=== PATIENT | male | born 1955 | race Caucasian/White ===

== ENCOUNTER 2021-06-20 14:54 | Inpatient (IN) ==
[2021-06-20 16:20] LABS: Basophils % 0.1 %; Hematocrit 32.8 % (37.5-50.1); Hemoglobin 10.2 g/dL (12.9-16.9); Immature Granulocytes % 0.8 % (0-4); Lymphocytes # 0.5 K/mcL (0.6-4.6); Lymphocytes % 6.3 %; Mean Corpuscular HGB Conc 31.1 g/dL (31.6-35.5); Mean Corpuscular Hemoglobin 30.7 pg (28.0-33.3); Mean Corpuscular Volume 98.8 fL (83.0-100.0); Mean Platelet Volume 11.9 fL (9.4-12.4); Monocytes # 0.2 K/mcL (0.0-1.3); Neutrophils # 7.2 K/mcL (1.6-8.9); Platelet Count 276 K/mcL (140-400); Red Blood Count 3.32 M/mcL (4.19-5.50); Red Cell Distribution Width 13.8 % (11.5-14.5); Segmented Neutrophils % 90.8 %
[2021-06-20 16:45] LABS: Calcium 8.8 mg/dL (8.6-10.3); Troponin I 0.05 ng/mL (< 0.04)
[2021-06-20] MEDS ORDERED: Calcium Gluconate 1gm/50mL 1 GM/50 ML BAG IVPB STA ×2 (16:47→21:44)
[2021-06-20] MEDS ORDERED: Insulin Human Regular 10 UNIT in 0.9 % Sodium Chloride 10 ML IV ONE ×2 (16:49→20:57)
[2021-06-20] MEDS ORDERED: Albuterol 2.5 MG/3 ML NEBULIZER IH ONE (16:49)
[2021-06-20] MEDS ORDERED: [UNRECOGNIZED DRUG - OTHER] IV ONE ×2 (16:51→21:45)
[2021-06-20] MEDS ORDERED: Furosemide 40 MG in 0.9 % Sodium Chloride 50 ML IV ONE (16:53)
[2021-06-20] MEDS ORDERED: Furosemide 40 MG/4 ML VIAL IVP ONE (17:00)
[2021-06-20 20:52] LABS: Calcium 9.2 mg/dL (8.6-10.3); Potassium 6.6 mEq/L (3.5-5.1)
[2021-06-20] MEDS ORDERED: Calcium Gluconate 1gm/50mL 1 GM/50 ML BAG IVPB ONE (22:00)
[2021-06-20] MEDS ORDERED: Ondansetron 4 MG/2 ML VIAL IVP PRN (22:23)
[2021-06-20] MEDS ORDERED: Naloxone 0.4 MG/ML INJ IVP PRN (22:23)
[2021-06-20] MEDS ORDERED: Acetaminophen 325 MG TABLET PO PRN (22:23)
[2021-06-20] MEDS ORDERED: SODIUM ZIRCONIUM CYCLOSILICATE 5 GM POWD.PACK PO ONE (23:14)
[2021-06-21] MEDS ORDERED: Ipratropium/Albuterol Neb 3 ML IH PRN
[2021-06-21 02:21] LABS: Basophils % 0.1 %; Hematocrit 30.8 % (37.5-50.1); Hemoglobin 9.6 g/dL (12.9-16.9); Immature Granulocytes % 0.5 % (0-4); Lymphocytes # 0.5 K/mcL (0.6-4.6); Lymphocytes % 4.8 %; Mean Corpuscular HGB Conc 31.2 g/dL (31.6-35.5); Mean Corpuscular Hemoglobin 30.8 pg (28.0-33.3); Mean Corpuscular Volume 98.7 fL (83.0-100.0); Monocytes # 0.8 K/mcL (0.0-1.3); Monocytes % 7.4 %; Neutrophils # 8.8 K/mcL (1.6-8.9); Platelet Count 270 K/mcL (140-400); Red Blood Count 3.12 M/mcL (4.19-5.50); Red Cell Distribution Width 13.9 % (11.5-14.5); Segmented Neutrophils % 87.2 %; White Blood Count 10.1 K/mcL (4.3-11.1)
[2021-06-21 02:29] LABS: INR 1.1; Prothrombin Time 11.7 Seconds (9.4-12.1)
[2021-06-21 02:37] LABS: Albumin 3.8 g/dL (3.5-5.7); Albumin/Globulin Ratio 1.2 (1.1-2.2); Bilirubin,Direct 0.1 mg/dL (0.0-0.2); Bilirubin,Indirect 0.2 mg/dL (0.0-1.0); Bilirubin,Total 0.3 mg/dL (0.3-1.0); Globulin 3.3 g/dL (2.4-3.5); Total Protein 7.1 g/dL (6.4-8.9)
[2021-06-21 02:47] LABS: Calcium 9.1 mg/dL (8.6-10.3); Magnesium 2.8 mg/dL (1.6-2.6); Potassium 6.5 mEq/L (3.5-5.1)
[2021-06-21 03:11] LABS: Thyroid Stimulating Hormone 0.279 mcIU/mL (0.340-5.600)
[2021-06-21] MEDS ORDERED: Albuterol 2.5 MG/3 ML NEBULIZER IH ONE (03:18)
[2021-06-21] MEDS ORDERED: SODIUM ZIRCONIUM CYCLOSILICATE 5 GM POWD.PACK PO ONE (03:19)
[2021-06-21] MEDS ORDERED: Calcium Gluconate 1gm/50mL 1 GM/50 ML BAG IVPB ONE (03:19)
[2021-06-21] MEDS ORDERED: *HR* Dextrose 50 % in Water (Syg) 50 ML SYRINGE IVP PRN (03:25)
[2021-06-21] MEDS ORDERED: D5% in Water 1,000 ML IVC PRN (03:25)
[2021-06-21] MEDS ORDERED: Dextrose Gel 15 GM/37.5 ML TUBE PO PRN ×2 (03:25)
[2021-06-21] MEDS: Insulin LISPRO 300 UNITS/3 ML VIAL SUBQ SCH ×6 (03:58→20:26)
[2021-06-21] MEDS: *HR* Heparin 5,000 UNIT/ML VIAL SQ SCH ×3 (05:10→20:26)
[2021-06-21 07:37] LABS: Calcium 9.1 mg/dL (8.6-10.3); Potassium 5.8 mEq/L (3.5-5.1)
[2021-06-21 07:40] LABS: Bilirubin,Urine Negative (Negative); Blood,Urine Negative (Negative); Clarity,Urine Clear (Clear); Color,Urine Light-Yellow (Yellow); Glucose,Urine (UA) 300 mg/dL (Normal); Ketones,Urine Negative (Negative); Leukocyte Esterase,Urine Negative (Negative); Mucus,Urine Few per lpf (None-Few); Nitrite,Urine Negative (Negative); PH,Urine 7.5 pH Units (5.0-8.0); Protein,Urine >=600 mg/dL (Neg-Trace); RBC,Urine 0-3 per hpf (0-3); Specific Gravity,Urine 1.023 (1.010-1.025); Squamous Epithelial Cell,Urine Few per hpf (None-Few); Urobilinogen,Urine Normal (Normal); WBC,Urine 15-30 per hpf (0-3)
[2021-06-21] MEDS: Azithromycin 500 MG in 0.9 % Sodium Chloride 250 ML IVPB SCH (08:04)
[2021-06-21] MEDS: predniSONE 20 MG TABLET PO SCH (08:05)
[2021-06-21] MEDS ORDERED: Perit. Dialysis with Dex 1.5 % 6,000 ML PERITONEAL ONE ×2 (08:20→19:00)
[2021-06-21] MEDS ORDERED: Insulin DETEMIR 100 UNIT/ML X5UNITS SUBQ SCH (09:00)
[2021-06-21 09:24] LABS: Hepatitis B Surface Antibody 3.26 mIU/mL
[2021-06-21 09:35] LABS: Hepatitis B Surface Antigen Nonreactive (Nonreactive)
[2021-06-21] MEDS: Calcium Acetate 667 MG CAPSULE PO SCH ×3 (12:17→20:32)
[2021-06-21] MEDS: carvediloL 6.25 MG TABLET PO SCH ×2 (12:18→19:11)
[2021-06-21] MEDS: hydrALAZINE 25 MG TABLET PO SCH ×3 (12:18→20:26)
[2021-06-21] MEDS: Insulin NPH/REG 70/30 100 UNIT/ML (x5UNIT) SUBQ SCH ×2 (12:36→20:27)
[2021-06-21 12:49] LABS: Estimated Average Glucose 160 mg/dl; Hemoglobin A1C 7.2 %
[2021-06-21] MEDS ORDERED: Perit. Dialysis with Dex 2.5 % 6,000 ML PERITONEAL ONE (19:00)
[2021-06-22] MEDS: *HR* Heparin 5,000 UNIT/ML VIAL SQ SCH (05:10)
[2021-06-22] MEDS: Insulin LISPRO 300 UNITS/3 ML VIAL SUBQ SCH (08:29)
[2021-06-22] MEDS: Calcium Acetate 667 MG CAPSULE PO SCH (08:30)
[2021-06-22] MEDS: carvediloL 6.25 MG TABLET PO SCH (08:30)
[2021-06-22] MEDS: predniSONE 20 MG TABLET PO SCH (08:30)
[2021-06-22] MEDS: hydrALAZINE 25 MG TABLET PO SCH (08:31)
[2021-06-22] MEDS: Insulin NPH/REG 70/30 100 UNIT/ML (x5UNIT) SUBQ SCH (08:32)
[2021-06-22] MEDS: Azithromycin 500 MG in 0.9 % Sodium Chloride 250 ML IVPB SCH (08:33)
[2021-06-22 09:48] LABS: White Blood Count 13.2 K/mcL (4.3-11.1)
[2021-06-22 09:49] LABS: Basophils % 0.2 %; Eosinophils # 0.1 K/mcL (0.0-0.6); Eosinophils % 0.8 %; Hematocrit 27.4 % (37.5-50.1); Hemoglobin 8.8 g/dL (12.9-16.9); Immature Granulocytes % 0.8 % (0-4); Lymphocytes # 1.4 K/mcL (0.6-4.6); Lymphocytes % 10.2 %; Mean Corpuscular HGB Conc 32.1 g/dL (31.6-35.5); Mean Corpuscular Hemoglobin 31.2 pg (28.0-33.3); Mean Corpuscular Volume 97.2 fL (83.0-100.0); Mean Platelet Volume 12.6 fL (9.4-12.4); Monocytes # 1.4 K/mcL (0.0-1.3); Monocytes % 10.4 %; Neutrophils # 10.2 K/mcL (1.6-8.9); Platelet Count 273 K/mcL (140-400); Red Blood Count 2.82 M/mcL (4.19-5.50); Red Cell Distribution Width 13.4 % (11.5-14.5); Segmented Neutrophils % 77.6 %
[2021-06-22 10:09] LABS: Calcium 8.9 mg/dL (8.6-10.3); Potassium 5.1 mEq/L (3.5-5.1)
[2021-06-22 12:14] VITALS: BP 157/82; PULSE 70; TEMP 97.6; O2SAT 93
== END 2021-06-22 13:34 | disposition home or self-care (01) | DRG 640 ==
LOC: 3NENU 14:54 → EMEROOARM 14:54 → OBSVTOIN 22:04 → SUATTDRO 22:04 → 3NENU 22:33
PROVIDERS: ADMIT Internal Medicine; ATTEND Internal Medicine

== ENCOUNTER 2022-01-03 21:36 | Inpatient (IN) ==
[2022-01-03 22:45] LABS: Basophils # 0.1 K/mcL (0.0-0.2); Basophils % 0.8 %; Eosinophils # 0.4 K/mcL (0.0-0.6); Eosinophils % 3.1 %; Hematocrit 27.1 % (37.5-50.1); Hemoglobin 8.6 g/dL (12.9-16.9); Immature Granulocytes % 1.2 % (0-4); Lymphocytes # 0.8 K/mcL (0.6-4.6); Lymphocytes % 6.5 %; Mean Corpuscular HGB Conc 31.7 g/dL (31.6-35.5); Mean Corpuscular Volume 103.8 fL (83.0-100.0); Mean Platelet Volume 10.9 fL (9.4-12.4); Monocytes # 1.5 K/mcL (0.0-1.3); Neutrophils # 9.8 K/mcL (1.6-8.9); Nucleated Red Blood Cells 0.6 /100 WBC (0); Platelet Count 317 K/mcL (140-400); Red Blood Count 2.61 M/mcL (4.19-5.50); Red Cell Distribution Width 15.5 % (11.5-14.5); Segmented Neutrophils % 76.4 %; White Blood Count 12.9 K/mcL (4.3-11.1)
[2022-01-03 23:07] LABS: Calcium 9.3 mg/dL (8.6-10.3); Potassium 5.2 mEq/L (3.5-5.1)
[2022-01-03 23:12] LABS: Troponin I 0.17 ng/mL (< 0.04)
[2022-01-04] MEDS ORDERED: *HR* Heparin 5,000 UNIT/ML VIAL IVP PRN ×2 (02:06)
[2022-01-04] MEDS ORDERED: *HR* Heparin 5,000 UNIT/ML VIAL IVP ONE (02:06)
[2022-01-04] MEDS ORDERED: Heparin 25,000UNIT/250ML 1/2NS 25,000 UNIT/250 ML IV.SOLN IVC SCH (02:15)
[2022-01-04] MEDS ORDERED: Melatonin 3 MG TABLET PO PRN (02:20)
[2022-01-04] MEDS ORDERED: Naloxone 0.4 MG/ML INJ IVP PRN (02:20)
[2022-01-04] MEDS ORDERED: Ondansetron 4 MG/2 ML VIAL IVP PRN (02:20)
[2022-01-04] MEDS ORDERED: D5% in Water 1,000 ML IVC PRN (03:26)
[2022-01-04] MEDS ORDERED: *HR* Dextrose 50 % in Water (Syg) 50 ML SYRINGE IVP PRN (03:26)
[2022-01-04] MEDS ORDERED: Dextrose Gel 15 GM/37.5 ML TUBE PO PRN ×2 (03:26)
[2022-01-04] MEDS ORDERED: Perflutren Lipid Microsphere 1.3 ML in 0.9 % Sodium Chloride 8.7 ML IVP PRN (03:26)
[2022-01-04 05:12] LABS: Basophils # 0.1 K/mcL (0.0-0.2); Basophils % 0.9 %; Eosinophils # 0.4 K/mcL (0.0-0.6); Eosinophils % 3.3 %; Hematocrit 26.3 % (37.5-50.1); Hemoglobin 8.5 g/dL (12.9-16.9); Immature Granulocytes % 1.1 % (0-4); Lymphocytes # 1.2 K/mcL (0.6-4.6); Lymphocytes % 10.1 %; Mean Corpuscular HGB Conc 32.3 g/dL (31.6-35.5); Mean Corpuscular Hemoglobin 33.2 pg (28.0-33.3); Mean Corpuscular Volume 102.7 fL (83.0-100.0); Mean Platelet Volume 10.9 fL (9.4-12.4); Monocytes # 1.5 K/mcL (0.0-1.3); Monocytes % 12.8 %; Neutrophils # 8.4 K/mcL (1.6-8.9); Nucleated Red Blood Cells 0.8 /100 WBC (0); Platelet Count 321 K/mcL (140-400); Red Blood Count 2.56 M/mcL (4.19-5.50); Red Cell Distribution Width 15.1 % (11.5-14.5); Segmented Neutrophils % 71.8 %; White Blood Count 11.7 K/mcL (4.3-11.1)
[2022-01-04 05:13] LABS: Heparin anti-factor XA UFH 0.27 IU/mL (0.30-0.70); INR 1.1; Prothrombin Time 12.8 Seconds (9.4-12.1)
[2022-01-04 05:31] LABS: Albumin 3.4 g/dL (3.5-5.7); Bilirubin,Total 0.4 mg/dL (0.3-1.0); Calcium 9.3 mg/dL (8.6-10.3); Chol/HDL Ratio 2.1 (0-4.9); Globulin 3.3 g/dL (2.4-3.5); Magnesium 2.1 mg/dL (1.6-2.6); Potassium 4.7 mEq/L (3.5-5.1); Total Protein 6.7 g/dL (6.4-8.9)
[2022-01-04 05:52] LABS: Folate 19.5 ng/mL (3.0-16.0)
[2022-01-04] MEDS: Insulin LISPRO 300 UNITS/3 ML VIAL SUBQ SCH ×3 (08:08→17:39)
[2022-01-04] MEDS: carvediloL 6.25 MG TABLET PO SCH ×2 (08:14→17:39)
[2022-01-04] MEDS: Aspirin Enteric Coated 81 MG Tablet PO SCH (08:15)
[2022-01-04] MEDS ORDERED: Perit. Dialysis with Dex 1.5 % 2,000 ML PERITONEAL ONE (08:31)
[2022-01-04] MEDS: Insulin DETEMIR 100 UNIT/ML X5UNITS SUBQ SCH (11:52)
[2022-01-04] MEDS ORDERED: Furosemide 40 MG TABLET PO PRN (12:13)
[2022-01-04] MEDS ORDERED: *HR* Heparin 10,000 UNIT/10 ML VIAL ONE (14:21)
[2022-01-04] MEDS ORDERED: *HR* Midazolam HCl 2 MG/2 ML VIAL ONE ×2 (14:21→15:28)
[2022-01-04] MEDS ORDERED: *HR* FentaNYL (PF) 100 MCG/2 ML VIAL ONE ×2 (14:21→15:27)
[2022-01-04] MEDS ORDERED: 0.9 % Sodium Chloride 2,000 ML ONE (14:22)
[2022-01-04] MEDS ORDERED: Heparin 1,000 UNITS/500 mL 500 ML ONE (14:22)
[2022-01-04] MEDS ORDERED: Iopamidol - 370 200 ML INFUS..BTL ONE ×2 (14:22→16:20)
[2022-01-04] MEDS ORDERED: Nitroglycerin 1,000 MCG/5 ML VIAL IV ONE (14:22)
[2022-01-04] MEDS ORDERED: *HR* Heparin 5,000 UNIT/ML VIAL ONE ×2 (15:31→16:18)
[2022-01-04] MEDS ORDERED: Perit. Dialysis with Dex 2.5 % 12,000 ML PERITONEAL ONE (19:00)
[2022-01-04] MEDS: hydrALAZINE 25 MG TABLET PO SCH (20:28)
[2022-01-05] MEDS: Insulin LISPRO 300 UNITS/3 ML VIAL SUBQ SCH ×3 (00:17→12:33)
[2022-01-05 01:55] LABS: Hematocrit 25.7 % (37.5-50.1); Hemoglobin 8.4 g/dL (12.9-16.9); Mean Corpuscular HGB Conc 32.7 g/dL (31.6-35.5); Mean Corpuscular Hemoglobin 32.9 pg (28.0-33.3); Mean Corpuscular Volume 100.8 fL (83.0-100.0); Mean Platelet Volume 10.9 fL (9.4-12.4); Platelet Count 319 K/mcL (140-400); Red Blood Count 2.55 M/mcL (4.19-5.50); Red Cell Distribution Width 15.4 % (11.5-14.5); White Blood Count 12.4 K/mcL (4.3-11.1)
[2022-01-05 02:13] LABS: Phosphorous 11.9 mg/dL (2.7-4.5)
[2022-01-05 02:54] LABS: Hepatitis B Surface Antibody 18.23 mIU/mL
[2022-01-05 03:04] LABS: Hepatitis B Surface Antigen Nonreactive (Nonreactive)
[2022-01-05] MEDS: hydrALAZINE 25 MG TABLET PO SCH (08:38)
[2022-01-05] MEDS: Aspirin Enteric Coated 81 MG Tablet PO SCH (08:38)
[2022-01-05] MEDS: carvediloL 6.25 MG TABLET PO SCH (08:38)
[2022-01-05] MEDS: Insulin DETEMIR 100 UNIT/ML X5UNITS SUBQ SCH (08:39)
[2022-01-05] MEDS ORDERED: Ascorbic Acid 500 MG TABLET PO SCH (09:00)
[2022-01-05] MEDS ORDERED: allopurinoL 100 MG TABLET PO SCH (09:00)
[2022-01-05] MEDS ORDERED: Gabapentin 100 MG CAPSULE PO SCH (09:00)
[2022-01-05 11:58] VITALS: BP 174/92; PULSE 68; TEMP 97.7; O2SAT 95
[2022-01-06 11:11] LABS: Calcium 9.4 mg/dL (8.6-10.3); Potassium 5.3 mEq/L (3.5-5.1)
[2022-01-06 11:39] LABS: Troponin I 1.71 ng/mL (< 0.04)
== END 2022-01-05 14:47 | disposition home or self-care (01) | DRG 246 ==
LOC: EMEROOARM 21:36 → 2ANU 21:36 → SUATTDRO 01-04 02:29 → 2ANU 01-04 03:04
PROVIDERS: ADMIT Internal Medicine; ATTEND Internal Medicine

== ENCOUNTER 2022-04-04 17:45 | Inpatient (IN) ==
[2022-04-04] MEDS ORDERED: Naloxone 0.4 MG/ML INJ IVP PRN (22:16)
[2022-04-04] MEDS ORDERED: Ondansetron 4 MG/2 ML VIAL IVP PRN (22:26)
[2022-04-04] MEDS ORDERED: Acetaminophen 325 MG TABLET PO PRN (22:26)
[2022-04-04] MEDS ORDERED: D5% in Water 1,000 ML IVC PRN (22:44)
[2022-04-04] MEDS ORDERED: Dextrose Gel 15 GM/37.5 ML TUBE PO PRN ×2 (22:44)
[2022-04-04] MEDS ORDERED: *HR* Dextrose 50 % in Water (Syg) 50 ML SYRINGE IVP PRN (22:44)
[2022-04-04 23:11] LABS: Influenza A PCR Negative (Negative); Influenza B PCR Negative (Negative); Resp. Syncytial Virus PCR Negative (Negative)
[2022-04-04 23:12] LABS: SARS-CoV-2 by PCR (In House) Positive (Negative)
[2022-04-04] MEDS: Insulin LISPRO 300 UNITS/3 ML VIAL SUBQ SCH (23:30)
[2022-04-05 01:30] LABS: Hemoglobin 9.6 g/dL (12.9-16.9); Mean Corpuscular Volume 103.1 fL (83.0-100.0); Mean Platelet Volume 11.1 fL (9.4-12.4); Platelet Count 268 K/mcL (140-400); Red Blood Count 2.91 M/mcL (4.19-5.50); Red Cell Distribution Width 15.9 % (11.5-14.5); White Blood Count 10.1 K/mcL (4.3-11.1)
[2022-04-05 01:40] LABS: VBG Ionized Calcium 0.81 mmol/L (1.15-1.35)
[2022-04-05 01:42] LABS: INR 1.2; Prothrombin Time 12.9 Seconds (9.4-12.1)
[2022-04-05 01:45] LABS: Activated Partial Thrombo Time 32.4 Seconds (26.0-36.0)
[2022-04-05] MEDS ORDERED: Furosemide 40 MG TABLET PO PRN (01:54)
[2022-04-05 01:55] LABS: Troponin I 0.12 ng/mL (< 0.04)
[2022-04-05 01:58] LABS: % Iron Saturation 17 % (20-55); BUN/Creatinine Ratio 5 (6-26); Blood Urea Nitrogen 67 mg/dL (8-23); Calcium 7.4 mg/dL (8.6-10.3); Carbon Dioxide 18 mEq/L (23-29); Chloride 91 mEq/L (98-107); Chol/HDL Ratio 4.8 (0-4.9); Cholesterol 77 mg/dL (< 200); Glucose 122 mg/dL (70-105); HDL Cholesterol 16 mg/dL (40-59); Iron 30 mcg/dL (65-175); Osmolality,Calculated 295 (280-300); Potassium 4.3 mEq/L (3.5-5.1); Procalcitonin 1.37 ng/mL (0.00-0.15); Sodium 132 mEq/L (136-145); Transferrin 125 mg/dL (203-362); Triglycerides 358 mg/dL (< 150)
[2022-04-05] MEDS ORDERED: Calcium Gluconate 1gm/50mL 1 GM/50 ML BAG IVPB ONE ×3 (02:02→12:02)
[2022-04-05 02:14] LABS: Folate > 22.3 ng/mL (3.0-16.0); Vitamin B12 > 1500 pg/mL (250-1100)
[2022-04-05 02:15] LABS: Albumin 3.1 g/dL (3.5-5.7); Ferritin > 1500 ng/mL (20-250); Thyroid Stimulating Hormone 2.087 mcIU/mL (0.340-5.600)
[2022-04-05] MEDS ORDERED: Prochlorperazine 10 MG/2 ML VIAL IVP ONE (02:23)
[2022-04-05] MEDS: *HR* Heparin 5,000 UNIT/ML VIAL SQ SCH ×3 (04:47→22:20)
[2022-04-05] MEDS ORDERED: Famotidine 20 MG TABLET PO SCH (07:30)
[2022-04-05] MEDS: Insulin LISPRO 300 UNITS/3 ML VIAL SUBQ SCH ×6 (08:00→23:00)
[2022-04-05 09:12] LABS: Calcium 7.6 mg/dL (8.6-10.3); Potassium 4.7 mEq/L (3.5-5.1)
[2022-04-05] MEDS: Famotidine 20 MG TABLET PO SCH (10:21)
[2022-04-05] MEDS: allopurinoL 100 MG TABLET PO SCH (10:22)
[2022-04-05] MEDS: carvediloL 6.25 MG TABLET PO SCH ×2 (10:22→17:21)
[2022-04-05] MEDS: Aspirin Enteric Coated 81 MG Tablet PO SCH (10:22)
[2022-04-05 12:28] LABS: ABG Base Excess -5 mEq/L (-2 to 3); ABG HCO3 21 mEq/L (21-27); ABG Oxygen Saturation 94 % (95-98); ABG PCO2 40 mmHg (35-45); ABG PH 7.32 pH Units (7.32-7.45); ABG PO2 78 mmHg (85-104); ABG TCO2 22 mEq/L (20-26)
[2022-04-05] MEDS ORDERED: 0.9 % Sodium Chloride 250 ML IVC PRN (14:58)
[2022-04-05] MEDS ORDERED: Ethyl Chloride Spray Bottle (104 SPRAY/BOTTLE) TP PRN (14:58)
[2022-04-05] MEDS ORDERED: 0.9 % Sodium Chloride 2,000 ML PRIME SCH (15:00)
[2022-04-05] MEDS ORDERED: cefTRIAXone 1,000 MG in 0.9 % Sodium Chloride Mini Bag 100 ML IVPB SCH ×2 (17:00→19:00)
[2022-04-05] MEDS: MethylPREDNISolone 40 MG/ML VIAL IVP SCH (17:36)
[2022-04-05] MEDS ORDERED: clonazePAM 0.5 MG TABLET PO PRN (19:26)
[2022-04-05] MEDS ORDERED: Divalproex (12 HR) 500 MG TABLET PO ONE (21:00)
[2022-04-05] MEDS: Gabapentin 100 MG CAPSULE PO SCH (22:21)
[2022-04-05] MEDS: cefTRIAXone 1,000 MG in 0.9 % Sodium Chloride Mini Bag 100 ML IVPB SCH (22:28)
[2022-04-06] MEDS: MethylPREDNISolone 40 MG/ML VIAL IVP SCH ×3 (00:08→17:24)
[2022-04-06 03:53] LABS: Basophils # 0.1 K/mcL (0.0-0.2); Basophils % 0.5 %; Hemoglobin 9.9 g/dL (12.9-16.9); Immature Granulocytes % 3.9 % (0-4); Lymphocytes # 0.6 K/mcL (0.6-4.6); Lymphocytes % 5.5 %; Mean Corpuscular HGB Conc 31.9 g/dL (31.6-35.5); Mean Corpuscular Hemoglobin 32.9 pg (28.0-33.3); Mean Platelet Volume 11.1 fL (9.4-12.4); Monocytes # 0.4 K/mcL (0.0-1.3); Monocytes % 3.8 %; Neutrophils # 9.2 K/mcL (1.6-8.9); Platelet Count 298 K/mcL (140-400); Red Blood Count 3.01 M/mcL (4.19-5.50); Red Cell Distribution Width 16.1 % (11.5-14.5); Segmented Neutrophils % 86.3 %; White Blood Count 10.7 K/mcL (4.3-11.1)
[2022-04-06 04:11] LABS: Albumin/Globulin Ratio 0.8 (1.1-2.2); Bilirubin,Total 0.4 mg/dL (0.3-1.0); Calcium 8.3 mg/dL (8.6-10.3); Globulin 3.9 g/dL (2.4-3.5); Potassium 4.3 mEq/L (3.5-5.1); Total Protein 6.9 g/dL (6.4-8.9)
[2022-04-06] MEDS: *HR* Heparin 5,000 UNIT/ML VIAL SQ SCH ×3 (05:34→21:49)
[2022-04-06] MEDS ORDERED: 0.9 % Sodium Chloride 250 ML IVC PRN (07:36)
[2022-04-06] MEDS: carvediloL 6.25 MG TABLET PO SCH ×2 (08:00→17:24)
[2022-04-06] MEDS: allopurinoL 100 MG TABLET PO SCH (08:00)
[2022-04-06] MEDS: Aspirin Enteric Coated 81 MG Tablet PO SCH (08:00)
[2022-04-06] MEDS: Famotidine 20 MG TABLET PO SCH (08:01)
[2022-04-06] MEDS: Insulin LISPRO 300 UNITS/3 ML VIAL SUBQ SCH ×4 (08:03→21:49)
[2022-04-06 10:38] LABS: Estimated Average Glucose 151 mg/dl; Hemoglobin A1C 6.9 %
[2022-04-06 12:09] LABS: Hematocrit 31.6 % (37.5-50.1); Hemoglobin 10.2 g/dL (12.9-16.9); Mean Corpuscular HGB Conc 32.3 g/dL (31.6-35.5); Mean Corpuscular Hemoglobin 32.3 pg (28.0-33.3); Mean Platelet Volume 10.8 fL (9.4-12.4); Platelet Count 319 K/mcL (140-400); Red Blood Count 3.16 M/mcL (4.19-5.50); Red Cell Distribution Width 15.9 % (11.5-14.5); White Blood Count 10.1 K/mcL (4.3-11.1)
[2022-04-06 12:25] LABS: Calcium 8.6 mg/dL (8.6-10.3); Potassium 3.8 mEq/L (3.5-5.1)
[2022-04-06] MEDS: Gabapentin 100 MG CAPSULE PO SCH (20:24)
[2022-04-06] MEDS: cefTRIAXone 1,000 MG in 0.9 % Sodium Chloride Mini Bag 100 ML IVPB SCH (20:26)
[2022-04-07] MEDS: MethylPREDNISolone 40 MG/ML VIAL IVP SCH ×3 (00:42→16:20)
[2022-04-07] MEDS: *HR* Heparin 5,000 UNIT/ML VIAL SQ SCH ×3 (05:25→20:42)
[2022-04-07] MEDS: Famotidine 20 MG TABLET PO SCH (09:55)
[2022-04-07] MEDS: carvediloL 6.25 MG TABLET PO SCH ×2 (09:55→16:19)
[2022-04-07] MEDS: Aspirin Enteric Coated 81 MG Tablet PO SCH (09:56)
[2022-04-07] MEDS: Insulin LISPRO 300 UNITS/3 ML VIAL SUBQ SCH ×4 (09:56→20:46)
[2022-04-07] MEDS: allopurinoL 100 MG TABLET PO SCH (09:57)
[2022-04-07 11:31] LABS: Albumin/Globulin Ratio 0.7 (1.1-2.2); Bilirubin,Total 0.4 mg/dL (0.3-1.0); Calcium 8.8 mg/dL (8.6-10.3); Globulin 4.2 g/dL (2.4-3.5); Potassium 4.5 mEq/L (3.5-5.1); Total Protein 7.2 g/dL (6.4-8.9)
[2022-04-07 14:58] LABS: VBG Ionized Calcium 1.07 mmol/L (1.15-1.35)
[2022-04-07] MEDS: Gabapentin 100 MG CAPSULE PO SCH (20:43)
[2022-04-07] MEDS: cefTRIAXone 1,000 MG in 0.9 % Sodium Chloride Mini Bag 100 ML IVPB SCH (20:49)
[2022-04-08] MEDS: MethylPREDNISolone 40 MG/ML VIAL IVP SCH ×2 (01:10→08:44)
[2022-04-08] MEDS: *HR* Heparin 5,000 UNIT/ML VIAL SQ SCH ×3 (05:38→20:14)
[2022-04-08 06:16] LABS: Bacteria,Urine Few per hpf (None-Few); Bilirubin,Urine Negative (Negative); Blood,Urine Negative (Negative); Clarity,Urine Clear (Clear); Color,Urine Yellow (Yellow); Glucose,Urine (UA) 500 mg/dL (Normal); Ketones,Urine Negative (Negative); Leukocyte Esterase,Urine Negative (Negative); Mucus,Urine Few per lpf (None-Few); Nitrite,Urine Negative (Negative); PH,Urine 7.5 pH Units (5.0-8.0); Protein,Urine >=600 mg/dL (Neg-Trace); RBC,Urine 0-3 per hpf (0-3); Specific Gravity,Urine > 1.030 (1.010-1.025); Squamous Epithelial Cell,Urine Few per hpf (None-Few); Urobilinogen,Urine Normal (Normal); WBC,Urine 15-30 per hpf (0-3)
[2022-04-08 07:15] LABS: Hematocrit 34.3 % (37.5-50.1); Hemoglobin 11.1 g/dL (12.9-16.9); Mean Corpuscular HGB Conc 32.4 g/dL (31.6-35.5); Mean Corpuscular Hemoglobin 32.9 pg (28.0-33.3); Mean Corpuscular Volume 101.8 fL (83.0-100.0); Mean Platelet Volume 11.2 fL (9.4-12.4); Nucleated Red Blood Cells 2.3 /100 WBC (0); Platelet Count 337 K/mcL (140-400); Red Blood Count 3.37 M/mcL (4.19-5.50); Red Cell Distribution Width 15.8 % (11.5-14.5)
[2022-04-08 07:19] LABS: White Blood Count 20.6 K/mcL (4.3-11.1)
[2022-04-08 07:24] LABS: Albumin 3.3 g/dL (3.5-5.7); Albumin/Globulin Ratio 0.8 (1.1-2.2); Bilirubin,Total 0.4 mg/dL (0.3-1.0); Globulin 3.9 g/dL (2.4-3.5); Magnesium 2.1 mg/dL (1.6-2.6); Potassium 4.9 mEq/L (3.5-5.1); Total Protein 7.2 g/dL (6.4-8.9)
[2022-04-08] MEDS ORDERED: 0.9 % Sodium Chloride 250 ML IVC PRN (08:41)
[2022-04-08] MEDS ORDERED: *HR* Heparin 10,000 UNIT/10 ML VIAL IV PRN (08:41)
[2022-04-08] MEDS: allopurinoL 100 MG TABLET PO SCH (08:43)
[2022-04-08] MEDS: Famotidine 20 MG TABLET PO SCH (08:44)
[2022-04-08] MEDS: Aspirin Enteric Coated 81 MG Tablet PO SCH (08:44)
[2022-04-08] MEDS: carvediloL 6.25 MG TABLET PO SCH ×2 (08:45→17:21)
[2022-04-08] MEDS: Insulin LISPRO 300 UNITS/3 ML VIAL SUBQ SCH ×4 (09:01→22:05)
[2022-04-08 09:18] LABS: Lymphocytes # 1.4 K/mcL (0.6-4.6); Monocytes # 1.2 K/mcL (0.0-1.3); Neutrophils # 17.5 K/mcL (1.6-8.9); Platelet Estimate Normal (Normal); Polychromasia 1+ (Not Present)
[2022-04-08 12:13] LABS: Amphetamine Screen,Urine Negative ng/mL (Cutoff=1000); Barbiturate Screen,Urine Negative ng/mL (Cutoff=200); Benzodiazepines Screen,Urine Negative ng/mL (Cutoff=200); Cannabinoid Screen,Urine Negative ng/mL (Cutoff = 50); Cocaine Screen,Urine Negative ng/mL (Cutoff= 300); Opiate Screen,Urine Negative ng/mL (Cutoff=300); Phencyclidine Screen,Urine Negative ng/mL (Cutoff=25)
[2022-04-08] MEDS: cefTRIAXone 1,000 MG in 0.9 % Sodium Chloride Mini Bag 100 ML IVPB SCH (20:11)
[2022-04-08] MEDS: Gabapentin 100 MG CAPSULE PO SCH (20:11)
[2022-04-09 01:43] LABS: Basophils # 0.1 K/mcL (0.0-0.2); Basophils % 0.4 %; Hematocrit 33.3 % (37.5-50.1); Hemoglobin 10.6 g/dL (12.9-16.9); Immature Granulocytes % 6.5 % (0-4); Lymphocytes # 0.7 K/mcL (0.6-4.6); Lymphocytes % 3.4 %; Mean Corpuscular HGB Conc 31.8 g/dL (31.6-35.5); Mean Corpuscular Hemoglobin 32.8 pg (28.0-33.3); Mean Corpuscular Volume 103.1 fL (83.0-100.0); Mean Platelet Volume 11.4 fL (9.4-12.4); Monocytes # 2.2 K/mcL (0.0-1.3); Monocytes % 10.5 %; Neutrophils # 16.6 K/mcL (1.6-8.9); Nucleated Red Blood Cells 1.8 /100 WBC (0); Platelet Count 328 K/mcL (140-400); Red Blood Count 3.23 M/mcL (4.19-5.50); Red Cell Distribution Width 15.8 % (11.5-14.5); Segmented Neutrophils % 79.2 %
[2022-04-09 02:11] LABS: Albumin 2.9 g/dL (3.5-5.7); Calcium 8.3 mg/dL (8.6-10.3); Potassium 4.5 mEq/L (3.5-5.1)
[2022-04-09 02:38] LABS: Platelet Estimate Normal (Normal)
[2022-04-09] MEDS: *HR* Heparin 5,000 UNIT/ML VIAL SQ SCH ×3 (05:10→20:29)
[2022-04-09] MEDS: Famotidine 20 MG TABLET PO SCH (07:56)
[2022-04-09] MEDS: predniSONE 20 MG TABLET PO SCH (07:56)
[2022-04-09] MEDS: allopurinoL 100 MG TABLET PO SCH (07:56)
[2022-04-09] MEDS: carvediloL 6.25 MG TABLET PO SCH ×2 (07:56→17:20)
[2022-04-09] MEDS: Aspirin Enteric Coated 81 MG Tablet PO SCH (07:56)
[2022-04-09] MEDS: Insulin LISPRO 300 UNITS/3 ML VIAL SUBQ SCH ×4 (07:57→20:49)
[2022-04-09] MEDS: Gabapentin 100 MG CAPSULE PO SCH (20:32)
[2022-04-09] MEDS: cefTRIAXone 1,000 MG in 0.9 % Sodium Chloride Mini Bag 100 ML IVPB SCH (20:32)
[2022-04-10 05:50] LABS: Hematocrit 32.7 % (37.5-50.1); Hemoglobin 10.5 g/dL (12.9-16.9); Mean Corpuscular HGB Conc 32.1 g/dL (31.6-35.5); Mean Corpuscular Hemoglobin 33.1 pg (28.0-33.3); Mean Corpuscular Volume 103.2 fL (83.0-100.0); Mean Platelet Volume 11.4 fL (9.4-12.4); Monocytes # 2.5 K/mcL (0.0-1.3); Nucleated Red Blood Cells 1.2 /100 WBC (0); Platelet Count 263 K/mcL (140-400); Red Blood Count 3.17 M/mcL (4.19-5.50); Red Cell Distribution Width 15.8 % (11.5-14.5); White Blood Count 21.2 K/mcL (4.3-11.1)
[2022-04-10] MEDS: *HR* Heparin 5,000 UNIT/ML VIAL SQ SCH ×2 (05:59→12:16)
[2022-04-10 06:10] LABS: Albumin 2.9 g/dL (3.5-5.7); Phosphorous 5.2 mg/dL (2.7-4.5); Potassium 4.4 mEq/L (3.5-5.1)
[2022-04-10 06:21] LABS: Lymphocytes # 0.9 K/mcL (0.6-4.6); Platelet Estimate Normal (Normal)
[2022-04-10] MEDS ORDERED: *HR* Heparin 10,000 UNIT/10 ML VIAL IV PRN (08:35)
[2022-04-10] MEDS ORDERED: 0.9 % Sodium Chloride 250 ML IVC PRN (08:35)
[2022-04-10] MEDS: Famotidine 20 MG TABLET PO SCH (08:37)
[2022-04-10] MEDS: Aspirin Enteric Coated 81 MG Tablet PO SCH (08:38)
[2022-04-10] MEDS: allopurinoL 100 MG TABLET PO SCH (08:38)
[2022-04-10] MEDS: predniSONE 20 MG TABLET PO SCH (08:38)
[2022-04-10] MEDS: Insulin LISPRO 300 UNITS/3 ML VIAL SUBQ SCH ×2 (08:39→12:11)
[2022-04-10] MEDS: carvediloL 6.25 MG TABLET PO SCH (08:39)
[2022-04-10 12:16] VITALS: PULSE 60; TEMP 97.8; O2SAT 97
[2022-04-10 15:36] VITALS: BP 152/84
== END 2022-04-10 14:15 | disposition home or self-care (01) | DRG 177 ==
LOC: 2ANU → SUATTDRO 20:28 → 3NENU 04-05 16:37
PROVIDERS: ADMIT Internal Medicine; ATTEND Internal Medicine
PROC: IRDRAIN (2022-04-06 10:00)